=== PATIENT | male | born 1965 | race Caucasian/White ===

== ENCOUNTER 2023-01-16 07:42 | Observation (INO) | payer BC ==
[2023-01-14 14:14] LABS: BASOPHILS # (AUTO) 0.1 (0.0-0.1); BASOPHILS % 1.1 % (0.0-1.0); EOSINOPHILS # (AUTO) 0.1 (0.0-0.4); EOSINOPHILS % 1.7 % (0.0-6.0); HEMATOCRIT 39.5 % (38.2-49.6); HEMOGLOBIN 13.4 g/dL (14.0-18.0); LYMPHOCYTES % 31.1 % (18.0-39.1); MEAN CORPUSCULAR HEMOGLOBIN 32.4 pg (28-32); MEAN CORPUSCULAR HGB CONC 33.9 g/dL (31-35); MEAN CORPUSCULAR VOLUME 95.6 fL (81-99); MONOCYTES # (AUTO) 0.6 (0.2-0.8); MONOCYTES % 9.3 % (4.4-11.3); NEUTROPHILS # (AUTO) 3.7 (2.1-6.9); NEUTROPHILS % 56.5 % (38.7-80.0); PLATELET COUNT 164 x10e3/uL (140-360); RED BLOOD COUNT 4.13 x10e6/uL (4.3-5.7); RED CELL DISTRIBUTION WIDTH 11.9 % (11.7-14.4)
[2023-01-14 14:25] LABS: INR 0.96; PARTIAL THROMBOPLASTIN TIME 28.6 seconds (23.8-35.5); PROTHROMBIN TIME 13.3 seconds (11.9-14.5)
[2023-01-14 14:32] LABS: ANION GAP 13.7 mmol/L (8-16); CALCIUM 9.8 mg/dL (8.4-10.2); CREATININE, SERUM 0.87 mg/dL (0.72-1.25); POTASSIUM 3.7 mmol/L (3.5-5.1)
[~2023-01-16] VITALS: Ht 185.4 cm; Wt 99.8 kg
[~2023-01-16 07:42] MED LIST: ACETAMINOPHEN 1000 MG/100 ML 100 ML IV ONE; BENICAR20 MG PO; CARVEDILOL12.5 MG PO; CEFAZOLIN SODIUM 2 GM ONE; CLONIDINE HCL0.1 MG PO; CLONIDINE1 EAC2 TOP; CRESTOR10 MG PO; FARXIGA10 MG PO; FENOFIBRATE134 MG PO; GLIPIZIDE5 MG PO; HYDROCHLOROTHIA25 MG PO; HYDROCODON-ACE1 EA11 PO; LACTATED RINGER'S 1,000 ML ONE; LIDOCAINE 1% W/EPINEPHRINE 20 ML VIAL ONE; METFORMIN HCL500 MG PO; ROBAXIN100 MG/1 M PO; SUGAMMADEX SODIUM 200 MG/2 ML VIAL IV ONE; THROMBIN FOR SOLN 5,000 UNIT VIAL ONE; Vancomycin IV 0 MG ONE; Vancomycin IV 1 GM VIAL ONE; XANAX0.25 MG PO; ZYRTEC10 MG PO
[2023-01-16] MEDS ORDERED: HYDROCODON-ACE1 EA12 PO (09:28)
[2023-01-16] MEDS ORDERED: ACETAMINOPHEN 325 MG TAB PO PRN (09:30)
[2023-01-16] MEDS ORDERED: MAGNESIUM/ALUMINUM/SIMETHICONE 30 ML UDC PO PRN (09:30)
[2023-01-16] MEDS ORDERED: MORPHINE SULFATE 5 MG/ML VIAL IM PRN (09:30)
[2023-01-16] MEDS ORDERED: PROMETHAZINE HCL (IM) 25 MG/ML VIAL IM PRN (09:30)
[2023-01-16] MEDS ORDERED: ZOLPIDEM TARTRATE 5 MG TAB PO PRN (09:30)
[2023-01-16] MEDS ORDERED: CLONIDINE HCL 0.1 MG TAB PO PRN (09:30)
[2023-01-16] MEDS ORDERED: ALPRAZOLAM 0.25 MG TAB PO PRN (09:30)
[2023-01-16] MEDS ORDERED: ONDANSETRON HCL INJ 2MG/ML 2ML 2 MG/ML VIAL IV PRN (09:30)
[2023-01-16] MEDS ORDERED: CEPACOL SORE THROAT LOZENGES PO PRN (09:30)
[2023-01-16] MEDS ORDERED: HYDROMORPHONE 1MG/1ML INJ ONE (10:58)
[2023-01-16] MEDS ORDERED: HYDROMORPHONE 1MG/1ML 50ML SYR IV ONE (11:00)
[2023-01-16] MEDS: OXYCODONE/ACETAMINOPHEN 5-325 1 EACH TABLET PO PRN ×3 (12:24→20:29)
[2023-01-16] MEDS: CARISOPRODOL 350 MG TAB PO PRN ×3 (12:24→21:06)
[2023-01-16] MEDS ORDERED: DEXAMETHASONE SOD PHOS INJ 4 MG/ML SDV ONE (12:51)
[2023-01-16] MEDS ORDERED: KETOROLAC TROMETHAMINE 30 MG/ML VIAL ONE (12:51)
[2023-01-16] MEDS ORDERED: LIDOCAINE HCL 2% LOCAL INJ 5 ML SDV VIAL INJ ONE (12:51)
[2023-01-16] MEDS ORDERED: SEVOFLURANE INHAL SOLN 250 ML PEN BTL ONE (12:51)
[2023-01-16] MEDS ORDERED: ROCURONIUM BROMIDE 10 MG/ML 5ML VIAL IV ONE (12:51)
[2023-01-16] MEDS ORDERED: PROPOFOL IV EMULSION 10 MG/ML 20 ML VIAL ONE (12:51)
[2023-01-16] MEDS ORDERED: ONDANSETRON HCL INJ 2MG/ML 2ML 2 MG/ML VIAL ONE (12:51)
[2023-01-16] MEDS ORDERED: POVIDONE IODINE 0.05% 0.05 % ML PO ONE (12:51)
[2023-01-16 12:55] VITALS: BP 141/80
[2023-01-16 13:04] VITALS: BP 141/80
[2023-01-16 13:05] VITALS: BP 141/80
[2023-01-16] MEDS ORDERED: FENTANYL CITRATE/PF 100MCG/2 ML INJ ONE (13:16)
[2023-01-16] MEDS ORDERED: CLONIDINE HCL 0.3MG/24 HR PATCH TOP SCH (14:00)
[2023-01-16] MEDS: HYDROMORPHONE 2MG/ML 2 MG/ML ML IV PRN (15:37)
[2023-01-16] MEDS ORDERED: DEXTROSE 50% SYRINGE 50 ML IV PRN (15:45)
[2023-01-16 16:31] VITALS: BP 157/72
[2023-01-16] MEDS: METFORMIN HCL 500 MG TAB PO SCH (16:55)
[2023-01-16] MEDS: CARVEDILOL 12.5 MG TAB PO SCH (16:55)
[2023-01-16] MEDS: GLIPIZIDE 5 MG TAB PO SCH (17:02)
[2023-01-16] MEDS: INSULIN LISPRO 100 UNIT/1 ML 3ML VIAL SQ SCH ×2 (17:09→22:11)
[2023-01-16 20:00] VITALS: BP 122/97
[2023-01-16] MEDS ORDERED: SIMVASTATIN 20 MG TAB PO SCH (21:00)
[2023-01-16] MEDS ORDERED: FENOFIBRATE 145 MG TAB PO SCH (21:00)
[2023-01-16] MEDS ORDERED: FENOFIBRATE MICRONIZED PO SCH (21:00)
[2023-01-17] MEDS: LACTATED RINGER'S 1,000 ML IV SCH ×2 (00:45→00:46)
[2023-01-17] MEDS: HYDROMORPHONE 2MG/ML 2 MG/ML ML IV PRN (01:23)
[2023-01-17 04:00] VITALS: BP 136/67
[2023-01-17] MEDS: CARISOPRODOL 350 MG TAB PO PRN (06:00)
[2023-01-17] MEDS: INSULIN LISPRO 100 UNIT/1 ML 3ML VIAL SQ SCH (07:30)
[2023-01-17] MEDS: GLIPIZIDE 5 MG TAB PO SCH (07:30)
[2023-01-17] MEDS: METFORMIN HCL 500 MG TAB PO SCH (08:00)
[2023-01-17 08:26] VITALS: BP 156/74
[2023-01-17] MEDS: OXYCODONE/ACETAMINOPHEN 5-325 1 EACH TABLET PO PRN (08:46)
[2023-01-17] MEDS ORDERED: NON-FORMULARY MEDICATION (Cetirizine Hcl (Zyrtec) 10 MG) PO SCH (09:00)
[2023-01-17] MEDS ORDERED: LORATADINE 10 MG TAB PO SCH (09:00)
[2023-01-17] MEDS: CARVEDILOL 12.5 MG TAB PO SCH (09:00)
[2023-01-17] MEDS ORDERED: OLMESARTAN 20 MG TAB PO SCH (09:00)
[2023-01-17] MEDS ORDERED: (Dapagliflozin Propanediol (Farxiga) 10 MG) PO SCH (09:00)
[2023-01-17] MEDS ORDERED: HYDROCHLOROTHIAZIDE 25 MG TAB PO SCH (09:00)
== END 2023-01-17 09:36 | disposition home or self-care (01) ==
LOC: OR 07:42 → PACU V 11:01 → MED/SURG 11:40
PROVIDERS: ADMIT Neurological Surgery; ATTEND Neurological Surgery
DX: M50.020 Cervical disc disorder with myelopathy, mid-cervical region, unspecified level (principal); I10 Essential (primary) hypertension; E78.5 Hyperlipidemia, unspecified; E11.69 Type 2 diabetes mellitus with other specified complication; Z01.818 Encounter for other preprocedural examination
CPT/HCPCS: 0223U; 20931; 22551; 22552; 22845; 36415 ×3; 71046; 72040; 76000; 80048; 82948 ×2; 85025; 85610; 85730; 86850; 86900; 88304; 88311; 93005; C1713 ×4; C1768; G0378 ×2; J0131; J0690 ×2; J1100; J1170 ×3; J1885; J2001; J2405; J2704; J3010; J3370; J7121 ×2; L8699

== ENCOUNTER → 2023-02-13 | Outpatient (CLI) | payer BC ==
[~2023-02-13] MED LIST changes: -ACETAMINOPHEN 1000 MG/100 ML 100 ML IV ONE; -CEFAZOLIN SODIUM 2 GM ONE; +HYDROCODON-ACE1 EA12 PO; -LACTATED RINGER'S 1,000 ML ONE; -LIDOCAINE 1% W/EPINEPHRINE 20 ML VIAL ONE; -SUGAMMADEX SODIUM 200 MG/2 ML VIAL IV ONE; -THROMBIN FOR SOLN 5,000 UNIT VIAL ONE; -Vancomycin IV 0 MG ONE; -Vancomycin IV 1 GM VIAL ONE
== END ==
LOC: RAD 09:33
PROVIDERS: ATTEND Neurological Surgery
DX: M50.20 Other cervical disc displacement, unspecified cervical region (principal); M43.22 Fusion of spine, cervical region
CPT/HCPCS: 72050